=== PATIENT | male | born 1985 | race Caucasian/White ===

== ENCOUNTER 2019-05-24 04:13 | Observation (INO) ==
--- NOTE | 2019-05-24 04:29 | Emergency Department Note ---
ED Disposition Clinical Impression: Angina at rest, Tobacco use, Obesity (BMI 30.0-34.9) Chest pain Qualifiers: Chest pain type: precordial pain Qualified Code(s): R07.2 - Precordial pain Disposition: Admitted as Observation Condition on Discharge: Good Referrals: Provider,Referral, [Primary Care Provider] - - Critical Care Critical Care Time: No Attestation: On , the high probability of a clinically significant, sudden or life threatening deterioration of the following system(s) required my full and direct attention, intervention and personal management. The time I documented below is in addition to time spent performing reported procedures but includes the following listed in this critical care notation. Medical Decision Making - Medical Records Medical records reviewed: Yes: I reviewed the patient's medical records. - Wil[place] Inquiry Pt receiving controlled substance: No Vital Signs: 05/24/19 04:13 05/24/19 04:14 05/24/19 04:43 Temperature 99.3 F 99.3 F Temperature Source Oral Oral Pulse Rate [Right Brachial] 104 H 104 H 90 Respiratory Rate 14 14 16 Blood Pressure [Right Arm] 143/97 H 143/97 H 146/86 H Blood Pressure Mean [Right Arm] 112 112 106 Blood Pressure Source [Right Arm] Automatic Cuff Automatic Cuff Automatic Cuff Blood Pressure Position [Right Arm] Sitting Sitting Sitting 02 Sat by Pulse Oximetry 98 98 98 Oxygen Delivery Method Room Air Room Air Room Air - Lab Data Lab results reviewed: Yes: I reviewed the patient's lab results. Lab Results 05/24/19 04:24: WBC 10.7, RBC 4.81, Hgb 15.1, Hct 44.2, MCV 92.0, MCH 31.3 H, MCHC 34.0, RDW 13.3, Plt Count 268, MPV 8.1, Neut % (Auto) 64.3, Lymph % (Auto) 24.0, [place] % (Auto) 7.0, Eos % (Auto) 4.3, Baso % (Auto) 0.4, Neut # (Auto) 6.9, Lymph # (Auto) 2.6, [place] # (Auto) 0.8, Eos # (Auto) 0.5 H, Baso # (Auto) 0.0 05/24/19 04:24: Sodium 139, Potassium 3.6, Chloride 102, Carbon Dioxide 26, Anion Gap 14.6, BUN 10, Creatinine 0.93, Estimated Creat Clear 154, Estimated GFR 94, Est GFR ( Amer) 114, Glucose 88, Calcium 9.3, Troponin I < 0.02 Result diagrams: 05/24/19 04:24 05/24/19 04:24 Orders (Tests/Meds): ED MEDICATIONS Generic Name Dose Route Start Last Admin Trade Name Freq PRN Reason Stop Dose Admin Sodium Chloride 1,000 mls @ 999 mls/hr 05/24/19 04:15 05/24/19 04:22 Sod Chlor 0.9% 1000ml Bag IV 05/24/19 05:15 999 mls/hr .Q1H1M ARONLDO Administration Discontinued Medications Generic Name Dose Route Start Last Admin Trade Name Freq PRN Reason Stop Dose Admin Aspirin 324 mg 05/24/19 04:15 05/24/19 04:22 Aspirin 81mg Chewable Tablet PO 05/24/19 04:16 324 mg ONCE ONE Administration Nitroglycerin 1 gm 05/24/19 04:20 05/24/19 04:22 Nitroglycerin 1 Inch Oint Udp TD 05/24/19 04:21 1 gm ONCE ONE Administration ORDERS Category Date Time Status XR chest 2V Stat Exams 05/24/19 04:15 Taken - ECG Data Tracing #1 Normal Sinus Rhythm: Yes Ischemic changes: non-specific ST-T wave changes Chest Pain HPI - General Chief Complaint: Shortness of Breath/Dyspnea Stated Complaint: chest pain Time Seen by Provider: 05/24/19 04:20 Mode of Arrival: Ambulatory Source of Information: Patient, Medical Record Limitations: No Limitations Description of Symptoms (Recalled from ER Triage Doc. by RN): Pt c/o SOA and intermittent sharp chest pains that started yesterday - History of Present Illness HPI narrative: pt with chest tightness which started earlier tonight - has hx of card stents - reports pain is similiar to prev episodes - MD complaint: chest pain indicative of cardiac Onset (ago): hour(s) Duration: intermittent Activity at onset: during rest Pain location: substernal Severity: similar to previous episodes Quality: tightness Associated symptoms: nausea Risk Factors for CAD: Hypercholesterolemia, Family Hx of CAD, Smoking Treatments prior to or on arrival for Cardiac Chest Pain: none - ARTI Score for Non-Stemi Age of Patient: 30-39 years old Heart Rate: 90-109 bpm Systolic Blood Pressure: 140-159 mmHg Serum Creatinine: 0.80-1.19 mg/dl CHF [place] Class: I-No CHF Other Risk Factors: None Non-Stemi Risk Score: 54 - Related Data Prior Cardiac Testing/Procedures: Stenting Home Medications Medication Instructions Recorded Confirmed Atorvastatin Calcium [Atorvastatin 10 mg PO DAILY 07/19/18 05/24/19 10mg Tab] Gabapentin [Gabapentin 300mg Cap] 300 mg PO TID 07/19/18 05/24/19 Metoprolol Succinate [Kapspargo 50 mg PO DAILY 07/19/18 05/24/19 Sprinkle] Allergies Allergy/AdvReac Type Severity Reaction Status Date / Time Penicillins [PENICILLINS] Allergy Unknown Verified 07/20/18 13:03 [facility] History - Hepatitis A Screen Drug use history?: No High risk sexual behaviors?: No History of sexually transmitted infection?: No Currently employed?: No Childcare worker?: No Do you have indoor plumbing?: Yes Do you have electricity?: Yes Attestation statement:: This patient has been screened for Hepatitis A risk factors. I have reviewed the patient's past medical history: Yes Medical History: Reports:: Hyperlipidemia, Myocardial Infarction Denies:: Diabetes Mellitus Type 1, Diabetes Mellitus Type 2 Other Surgeries: Yes: Cardiac Catheterization (2017) - Social History Smoking Status: Current every day smoker # Packs/Day (cigarettes): 1 Alcohol Intake: never Family Hx:: Heart Attack Comment: father -CHF ROS Obtained: Yes All systems reviewed & no additional complaints - Constitutional Constitutional: Denies fever(s) - Eyes Eyes: Denies change in vision - ENT Ears, Nose, Mouth, and Throat: Denies sore throat - Cardiovascular Cardiovascular: Reports chest pain, Denies dyspnea - Respiratory Respiratory: No cough - Gastrointestinal Gastrointestingal: Denies: black, tarry stools - Genitourinary Male Genitourinary: Denies flank pain - Musculoskeletal Musculoskeletal: Denies joint pain - Integumentary/Breasts Skin/Breast: Denies rash - Neurologic Neurologic: Denies seizure-like activity Physical Exam - General General appearance: alert - Head Head exam: normocephalic - Eye Eye exam: Present: PERRL, EOMI - ENT ENT exam: Present: mucous membranes moist - Neck Neck exam: Present: trachea midline - Respiratory Respiratory exam: Absent: respiratory distress - Cardiovascular Cardiovascular exam: Present: regular rate, systolic murmur - Abdominal Exam Abdominal exam: Present: soft - Extremities Exam Extremities exam: Absent: calf tenderness - Neurological Exam Neurological exam: Present: alert, oriented X3, CN II-XII intact - Psychiatric Psychiatric exam: Present: normal affect - Skin Skin exam: Absent: rash
[2019-05-24 04:58] LABS: Basophils % 0.4 % (0.1-2.0); Eosinophils # 0.5 K/mm3 (0.0-0.4); Eosinophils % 4.3 % (0.1-12.0); Hematocrit 44.2 % (42.0-52.0); Hemoglobin 15.1 g/dL (14.1-18.0); Lymphocytes # 2.6 K/mm3 (0.7-4.5); Mean Platelet Volume 8.1 fl (7.4-10.4); Monocytes # 0.8 K/mm3 (0.1-1.0); Neutrophils # 6.9 K/mm3 (1.8-7.8); Neutrophils % 64.3 % (37.0-80.0); Platelet Count 268 K/mm3 (142-424); Red Blood Count 4.81 M/mm3 (4.60-6.20); Red Cell Distribution Width 13.3 % (11.5-17.5); White Blood Count 10.7 K/mm3 (4.8-10.8)
[2019-05-24 05:01] LABS: Anion Gap 14.6 mEq/L (5-15); Blood Urea Nitrogen 10 mg/dL (7-18); Calcium 9.3 mg/dL (8.5-10.1); Carbon Dioxide 26 mmol/L (21.0-32.0); Chloride 102 mmol/L (98-107); Glucose 88 mg/dL (74-106); Sodium 139 mmol/L (136-145)
--- NOTE | 2019-05-24 07:44 | Pharmacy Consult Notes ---
[facility] Pharmacy VTE Monitoring - Patient Demographics Admission date: 05/24/19 Report Date: 05/24/19 Time: 07:43 Allergies/Adverse Reactions: Patient Allergies Penicillins [PENICILLINS] Allergy (Unknown, Verified 07/20/18 13:03) Height: 1.65 m Weight: 106.254 kg Patient Problems: Current Active Problems Chest pain (Acute) Angina at rest (Acute) Tobacco use (Acute) Obesity (BMI 30.0-34.9) (Acute) - VTE Risk Labs: VTE Related Lab Results Hgb 15.1 g/dL (14.1-18.0) 05/24/19 04:24 Hct 44.2 % (42.0-52.0) 05/24/19 04:24 Plt Count 268 K/mm3 (142-424) 05/24/19 04:24 BUN 10 mg/dL (7-18) 05/24/19 04:24 Creatinine 0.93 mg/dL (0.70-1.30) 05/24/19 04:24 Estimated Creat Clear 154 mL/min (50-200) 05/24/19 04:24 Was VTE Risk Assessment Performed: Yes VTE Risk Level: Very Low Risk - Prophylaxis VTE Prophylaxis Ordered?: Yes Types of VTE Prophylaxis: TEDS Knee High Location of Applied Device: Bilateral Lower Extremeties - VTE Diagnosis Confirmed Treatment or plan recommended: Continue Current Treatment
--- NOTE | 2019-05-24 07:54 | History & Physical Report ---
*Admission Date: 05/24/19 *Chief complaint: Chest tightness with shortness of breath *History of present illness: 33-year-old male with history of coronary artery disease, [place] 1 year ago, presented to the emergency department with shortness of breath and chest tightness with exertion. Patient's original episode occurred around 9 PM. He finished his work shift which ended at 3:00. He came to the emergency department afterward. Patient describes being at work and developing shortness of breath that was soon followed by chest tightness that was relieved with rest. Anytime the patient would exert himself symptoms would recur. He has known RCA disease that needs to be managed medically. Patient claims he is compliant with medications. Patient has been battling an upper respiratory infection. He continues to smoke [facility] History I have reviewed the patient's past medical history: Yes Medical History: Reports:: Hyperlipidemia, Myocardial Infarction Denies:: Diabetes Mellitus Type 1, Diabetes Mellitus Type 2 *Have you ever received a pneumonia vaccine?: No *Have you received a flu vaccine this season?: Yes Other Surgeries: Yes: Cardiac Catheterization (2016) - *Social History Educational Level: Attended College Smoking Status: Current every day smoker # Packs/Day (cigarettes): 1 Alcohol Intake: never *Occupational Status:: employed *Travel in the last 8 weeks: None - Psychiatric History Expresses thoughts of harming self/others: None Suicide Plan Description: No Plan Family Hx:: Cancer, Heart Attack Review of Systems - Review of Systems Review of systems:: pertinent systems reviewed and negative unless documented below - Constitutional Denies anorexia, Denies body ache(s), Denies chills - *Cardiovascular Reports chest pain, Reports chest pain with activity, Reports shortness of breath with activity - *Respiratory Denies change in phlegm color, Denies chest congestion - *Gastrointestinal Denies abdominal pain, Denies belching - *Neurologic Denies seizure-like activity Meds Home Medications Medication Instructions Recorded Confirmed Type Atorvastatin Calcium [Atorvastatin 10 mg PO DAILY 07/19/18 05/24/19 History 10mg Tab] Eszopiclone [Lunesta] 1 mg PO HS 05/24/19 05/24/19 History Gabapentin 800 mg PO TID 05/24/19 05/24/19 History Metoprolol Tartrate [Lopressor 25 mg PO BID 05/24/19 05/24/19 History 25mg tablet] Allergies Allergy/AdvReac Type Severity Reaction Status Date / Time Penicillins [PENICILLINS] Allergy Unknown Verified 07/20/18 13:03 Exam Vital signs and Labs for Last 24 Hours: Temp Pulse Resp BP Pulse Ox 98.4 F 80 18 118/54 L 95 05/24/19 07:47 05/24/19 07:47 05/24/19 07:47 05/24/19 07:47 05/24/19 07:47 Laboratory Results - last 24 hr 05/24/19 04:24: WBC 10.7, RBC 4.81, Hgb 15.1, Hct 44.2, MCV 92.0, MCH 31.3 H, MCHC 34.0, RDW 13.3, Plt Count 268, MPV 8.1, Neut % (Auto) 64.3, Lymph % (Auto) 24.0, [place] % (Auto) 7.0, Eos % (Auto) 4.3, Baso % (Auto) 0.4, Neut # (Auto) 6.9, Lymph # (Auto) 2.6, [place] # (Auto) 0.8, Eos # (Auto) 0.5 H, Baso # (Auto) 0.0 05/24/19 04:24: Sodium 139, Potassium 3.6, Chloride 102, Carbon Dioxide 26, Anion Gap 14.6, BUN 10, Creatinine 0.93, Estimated Creat Clear 154, Estimated GFR 94, Est GFR ( Amer) 114, Glucose 88, Calcium 9.3, Troponin I < 0.02 I & O for Last 24 hours: Intake & Output 05/21/19 05/22/19 05/23/19 05/24/19 11:59 11:59 11:59 11:59 Intake Total 0 / 0 Balance 0 / 0 Weight 234 lb 4 oz - Constitutional no acute distress - *Routine HEENT Exam Head: Present: normocephalic ENT: Present: mucous membranes moist - *Routine Neck Exam Present: supple, full ROM. Absent: JVD - *Routine Respiratory Exam Present: CTA bilaterally - *Routine Cardiovascular Exam Present: RRR, Normal S1, Normal S2. Absent: murmur - *Routine Abdominal Exam Present: soft, normoactive bowel sounds - *Routine Extremities Exam Absent: cyanosis, clubbing, edema - *Routine Neurological Exam Present: oriented X3, CN II-XII intact Assessment and Plan (1) Coronary artery disease Current visit: Yes Status: Acute Category: Medical Code(s): I25.10 - Atherosclerotic heart disease of [place] coronary artery without angina pectoris (2) Angina at rest Current visit: Yes Status: Acute Category: Medical Code(s): I20.8 - Other forms of angina pectoris (3) Chest pain Current visit: Yes Status: Acute Qualifiers: Chest pain type: precordial pain Qualified Code(s): R07.2 - Precordial pain Category: Medical Code(s): R07.9 - Chest pain, unspecified (4) Obesity (BMI 30.0-34.9) Current visit: Yes Status: Acute Category: Medical Code(s): E66.9 - Obesity, unspecified (5) Tobacco use Current visit: Yes Status: Acute Category: Medical Code(s): Z72.0 - Tobacco use - Assessment and plan all Dx Assessment and Plan for all problems:: 1. Stress test today. Cardiology consultation
--- NOTE | 2019-05-24 07:58 | Consult Report ---
History of Present Illness Consult date: 05/24/19 Requesting physician: Prudencio Parada Consult reason: chest pain Chief complaint: chest pain Additional Medical History:: 1. Tobacco use, started age 14, 1 ppd 2. History of drug use, cocaine (remote) and marijuana 3. Family history of coronary artery disease, uncle with first myocardial infarction at age 40, father of with history of congestive heart failure in his 40's 4. Hypertension 5. NSTEMI, 05/2017 [facility] with stenting, 05/2017: ANGIOGRAPHIC RESULTS: 1. The left main artery normal 2. The left anterior descending artery proximally has 20% stenoses with mid vessel 30% stenoses. 3. The ramus intermedius is a medium to large vessel and has proximal and mid vessel 20% stenoses 4. The circumflex artery is a dominant vessel giving rise to a first obtuse marginal artery which has an ostial 80 and a proximal 99% stenosis. The distal vessels in 3 obtuse marginal arteries have mild nonflow limiting disease 5. The right coronary artery is a small nondominant vessel and has a proximal 80% stenosis 6. The STANLEY ventriculogram reveals normal 65% 7. The left ventricular end-diastolic pressure elevated at 20 mmHg IMPRESSION: 1. Severe single vessel coronary artery disease as described above 2. Successful stenting of the ostial first obtuse marginal artery critical disease reduced to 0% with 2 drug-eluting stents as described above 3. Normal ejection fraction 4. Mild to moderately elevated LVEDP 5. Severe disease in a small nondominant proximal right coronary artery PLAN: 1. Brilinta and aspirin for one year 2. LDL less than 55 3. Absolute avoidance of tobacco products 4. Risk factor modification 5. Agustin inhibitors plus carvedilol 6. Cardiac rehabilitation 7. I would like to treat the small nondominant right coronary artery medically. This is a small vessel and very unlikely to produce angina in the future given that only supplies the right ventricle with no communication with the left ventricle History of present illness: 33-year-old male with history of coronary artery disease, [place] 2 years ago, presented to the emergency department with shortness of breath and chest tightness with exertion. Patient's original episode occurred around 9 PM. He finished his work shift which ended at 3:00. He came to the emergency department afterward. Patient describes being at work and developing shortness of breath that was soon followed by chest tightness that was relieved with rest. Anytime the patient would exert himself symptoms would recur. He has known RCA disease that needs to be managed medically. Patient claims he is compliant with medications. Patient has been battling an upper respiratory infection. He continues to smoke. The above per Dr. Parada Pt was last seen in 06/2018 in our office with some history of recurrent chest pain for which a GXT myoview was ordered but never completed. EKG this admission is sinus without acute changes and initial troponin is normal. Pt relates headache from the NTG paste. Denies any drug use but continues to smoke, but is now on welbutrin to try and quit smoking. [facility] History Medical History: Reports:: Hyperlipidemia, Myocardial Infarction Denies:: Diabetes Mellitus Type 1, Diabetes Mellitus Type 2 *Have you ever received a pneumonia vaccine?: No *Have you received a flu vaccine this season?: Yes Other Surgeries: Yes: Cardiac Catheterization (2016) - *Social History Educational Level: Attended College Smoking Status: Current every day smoker # Packs/Day (cigarettes): 1 Alcohol Intake: never *Occupational Status:: employed *Travel in the last 8 weeks: None - Psychiatric History Expresses thoughts of harming self/others: None Suicide Plan Description: No Plan Family Hx:: Cancer, Heart Attack Meds Home Medications Medication Instructions Recorded Confirmed Type Atorvastatin Calcium [Atorvastatin 10 mg PO DAILY 07/19/18 05/24/19 History 10mg Tab] Eszopiclone [Lunesta] 1 mg PO HS 05/24/19 05/24/19 History Gabapentin 800 mg PO TID 05/24/19 05/24/19 History Metoprolol Tartrate [Lopressor 25 mg PO BID 05/24/19 05/24/19 History 25mg tablet] Allergies Allergy/AdvReac Type Severity Reaction Status Date / Time Penicillins [PENICILLINS] Allergy Unknown Verified 07/20/18 13:03 Review of Systems - *Cardiovascular Reports chest pain, Reports shortness of breath with activity - *Respiratory Reports cough, Reports shortness of breath with activity - *Gastrointestinal Denies abdominal pain, Denies nausea, Denies vomiting - *Genitourinary Denies blood in urine - *Musculoskeletal Denies joint pain, Denies back pain - *Neurologic Denies seizure-like activity, Denies fainting, Denies tingling Exam Vital signs and Labs for Last 24 Hours: Temp Pulse Resp BP Pulse Ox 98.4 F 80 18 118/54 L 95 05/24/19 07:47 05/24/19 07:47 05/24/19 07:47 05/24/19 07:47 05/24/19 07:47 Laboratory Results - last 24 hr 05/24/19 04:24: WBC 10.7, RBC 4.81, Hgb 15.1, Hct 44.2, MCV 92.0, MCH 31.3 H, MCHC 34.0, RDW 13.3, Plt Count 268, MPV 8.1, Neut % (Auto) 64.3, Lymph % (Auto) 24.0, [place] % (Auto) 7.0, Eos % (Auto) 4.3, Baso % (Auto) 0.4, Neut # (Auto) 6.9, Lymph # (Auto) 2.6, [place] # (Auto) 0.8, Eos # (Auto) 0.5 H, Baso # (Auto) 0.0 05/24/19 04:24: Sodium 139, Potassium 3.6, Chloride 102, Carbon Dioxide 26, Anion Gap 14.6, BUN 10, Creatinine 0.93, Estimated Creat Clear 154, Estimated GFR 94, Est GFR ( Amer) 114, Glucose 88, Calcium 9.3, Troponin I < 0.02 I & O for Last 24 hours: Intake & Output 05/21/19 05/22/19 05/23/19 05/24/19 11:59 11:59 11:59 11:59 Intake Total 0 / 0 Balance 0 / 0 Weight 234 lb 4 oz - *Routine HEENT Exam Head: Present: normocephalic Eye: Present: EOMI, PERRL ENT: Present: mucous membranes moist - *Routine Neck Exam Present: supple. Absent: JVD, carotid bruit - *Routine Respiratory Exam Present: CTA bilaterally. Absent: accessory muscle use, rales, rhonchi, wheezes Comments: expiratory wheezing noted with cough - *Routine Cardiovascular Exam Present: RRR. Absent: murmur, gallop, rubs - *Routine Abdominal Exam Present: soft. Absent: tenderness, distended, guarding - *Routine Extremities Exam Absent: edema, calf tenderness - *Routine Neurological Exam Present: alert, oriented X3, moving all extremities Assessment and Plan (1) Coronary artery disease Current visit: Yes Status: Acute Category: Medical Code(s): I25.10 - Atherosclerotic heart disease of [place] coronary artery without angina pectoris (2) Angina at rest Current visit: Yes Status: Acute Category: Medical Code(s): I20.8 - Other forms of angina pectoris (3) Chest pain Current visit: Yes Status: Acute Qualifiers: Chest pain type: precordial pain Qualified Code(s): R07.2 - Precordial pain Category: Medical Code(s): R07.9 - Chest pain, unspecified (4) Obesity (BMI 30.0-34.9) Current visit: Yes Status: Acute Category: Medical Code(s): E66.9 - Obesity, unspecified (5) Tobacco use Current visit: Yes Status: Acute Category: Medical Code(s): Z72.0 - Tobacco use - Assessment and plan all Dx Assessment and Plan for all problems:: 1. Recurrent exertional angina with known high-grade disease and a small, nondominant RCA best treated with medical therapy. Last cardiac cath was May 2017. Patient was seen in the office June 2018 for chest pain with recommendation for GXT Myoview to evaluate for recurrent coronary artery disease of the circumflex system or new disease of the LAD. EKG during this admission shows no acute changes, initial troponin is normal. We will proceed with exercise Myoview this a.m. with further recommendations to follow. If inferior wall is the only area of ischemia, then we will continue medical therapy. If an additional area is abnormal then proceed with cardiac catheterization. 2. Further recommendations to follow pending above results. 3. Nitroglycerin paste removed. 4. Continue metoprolol 25 mg twice daily, atorvastatin and aspirin.
--- NOTE | 2019-05-24 12:43 | Discharge Summary ---
General - General Admission date:: 05/24/19 Discharge date: 05/24/19 HPI HPI: 33-year-old male with history of coronary artery disease, [place] 1 year ago, presented to the emergency department with shortness of breath and chest tightness with exertion. Patient's original episode occurred around 9 PM. He finished his work shift which ended at 3:00. He came to the emergency department afterward. Patient describes being at work and developing shortness of breath that was soon followed by chest tightness that was relieved with rest. Anytime the patient would exert himself symptoms would recur. He has known RCA disease that needs to be managed medically. Patient claims he is compliant with medications. Patient has been battling an upper respiratory infection. He continues to smoke Hospital Course Hospital Course: Patient was admitted and ruled out for IL. Cardiology was consulted and arranged myoview stress test. Stress test showed evidence of old IL only. Patient was discharged to home. Patient will follow up with me in 48 hours and Cardiology next week Objective Vital signs: Temp Pulse Resp BP Pulse Ox 98.4 F 77 18 128/61 95 05/24/19 11:16 05/24/19 11:16 05/24/19 11:16 05/24/19 11:16 05/24/19 11:16 Results Labs on day of discharge: Labs from last 24 hours 05/24/19 05/24/19 04:24 04:24 WBC 10.7 RBC 4.81 Hgb 15.1 Hct 44.2 MCV 92.0 MCH 31.3 H MCHC 34.0 RDW 13.3 Plt Count 268 MPV 8.1 Neut % (Auto) 64.3 Lymph % (Auto) 24.0 [place] % (Auto) 7.0 Eos % (Auto) 4.3 Baso % (Auto) 0.4 Neut # (Auto) 6.9 Lymph # (Auto) 2.6 [place] # (Auto) 0.8 Eos # (Auto) 0.5 H Baso # (Auto) 0.0 Sodium 139 Potassium 3.6 Chloride 102 Carbon Dioxide 26 Anion Gap 14.6 BUN 10 Creatinine 0.93 Estimated Creat Clear 154 Estimated GFR 94 Est GFR ( Amer) 114 Glucose 88 Calcium 9.3 Troponin I < 0.02 DS: Diagnosis - Discharge Diagnosis (1) Coronary artery disease Status: Acute (2) Angina at rest Status: Acute (3) Chest pain Status: Acute (4) Obesity (BMI 30.0-34.9) Status: Acute (5) Tobacco use Status: Acute Discharge Plan - Patient Discharge Instructions ACTIVITY: Continue current activity DIET: continue same diet Additional Instructions: No work 05/24 Patient Instructions: DI for Angina, DI for Chest Pain - Follow up Plan Follow up with: Prudencio Parada MD [Primary Care Provider] - 2 days Primitivo Avina PA [Physician Meter And Service Line Inspector] - 1 week Disposition: Home, Self-Senior Living Medications: Home Medications Medication Instructions Recorded Confirmed Type Aspirin [Aspir-Low] 81 mg PO DAILY 05/24/19 05/24/19 History Atorvastatin Calcium [Atorvastatin 80 mg PO DAILY 05/24/19 05/24/19 History 80mg Tab] Eszopiclone [Lunesta] 1 mg PO HS 05/24/19 05/24/19 History Gabapentin 800 mg PO TID 05/24/19 05/24/19 History Metoprolol Tartrate [Lopressor 25 mg PO BID 05/24/19 05/24/19 History 25mg tablet] buPROPion HCl [Bupropion HCl Sr] 150 mg PO BID 05/24/19 05/24/19 History Prescriptions/Medication Reconciliation: Continued Gabapentin 800 mg PO TID buPROPion HCl [Bupropion HCl Sr] 150 mg PO BID Eszopiclone [Lunesta] 1 mg PO HS Metoprolol Tartrate [Lopressor 25mg tablet] 25 mg PO BID Atorvastatin Calcium [Atorvastatin 80mg Tab] 80 mg PO DAILY Aspirin [Aspir-Low] 81 mg PO DAILY - Problem Reconciliation Problems Reviewed?: Yes
--- NOTE | 2019-05-24 17:27 | Electrocardiograph Report ---
APPROVED REPORT Exam: Resting ECG HR:100 bpm ECG Measurements Heart Rate 100 AXES OK 150 P 54 QRSd 98 QRS 25 QT 334 T52 QTc 430 <Conclusion> Normal sinus rhythm Normal ECG Electronically signed by : Trey Mcmillan, 05/24/2019 17:27:25
--- NOTE | 2019-05-25 11:39 | Cardiology Report ---
APPROVED REPORT Exam: Exercise Treadmill Technologist: Bernadette Corcoran, Ht: 5 ft 5 in Wt: 234 lbs BSA: 2.11 m2 HR: 83 bpm BP: 132/82 mmHg Indications: Chest pain Medical History Medications: Metoprolol,,,,, Gabapentin,,,,, Atorvastatin,,,,, EsZOPICLONE,,,,, Stress Test Details Test: Kar HR Resting HR: 88 bpmMax Heart Rate (APMHR): 188 bpm Max HR Achieved: 147 bpmTarget HR (85% APMHR): 159 bpm % of APMHR: 78 Recovery HR: 99 bpm BP Resting BP: 132/82 mmHg Max BP: 176/80 mmHg Recovery BP: 130.0/83.0 mmHg ECG Clinical Exercise duration: 07:47 min Highest Stage Achieved: Exercise capacity: 10.1 METs Stress ECG Conclusion Resting ECG: Normal Sinus Rhythm, NS T wave abnormalities in lead III Patient exercised 7:46 on Kar Protocol, to maximum exertion. Test stopped due to shortness of air, leg fatigue. Mets: 10.1 Symptoms: No chest pain Arrhythmias/Ectopy: None ST-T Changes: Normal ST response to exercise. Conclusion: Normal GXT for heart rate achieved (78% of PM) Blunted heart rate on beta misael Myoview images reported separately. Test Summary REST.......Sitting REST.......Standing REST19:330.00.088.132/ 82.. Stage 101:0010.01.7110.... Stage 102:0010.01.7117.... Stage 103:0010.01.7122.130/ 78.. Stage 201:0012.02.5129.... Stage 202:0012.02.5133.... Stage 203:0012.02.5133.176/ 80.. Stage 3.......Myoview Injected Stage 301:4..4144.... Stage 301:4714.03.4146...Stop exercise at 07:47 [id number]:000.00.0135.154/ 76.. [id number]:000.00.0115.154/ 76.. [id number]:000.00.0104.137/ .. [id number]:000.00.0101.137/ .. [id number]:000.00.099.130/ .. [id number]:180.00.099.130/ 83.. Electronically signed by : Lamont Bagley, 05/25/2019 11:38:40
== END 2019-05-24 14:38 | disposition home or self-care (01) ==
LOC: 2ND 04:13 → ER 04:13 → 2ND 06:16
PROVIDERS: ADMIT Emergency Medicine; ATTEND Family Medicine
CPT/HCPCS: 71020; 71046; 78452; 80048; 84484; 85025; 93005; 93017; 93306; 96365; 99284; A9502; G0378

== ENCOUNTER → 2019-09-01 14:24 | Outpatient (CLI) | payer BC, SELFPAY ==
--- NOTE | 2019-09-01 14:31 | XR_ITS ---
PROCEDURE: XR FOOT WT BEARING RT 3V CLINICAL INDICATION: Pain COMPARISON: No exams were available for comparison FINDINGS: No fracture or dislocation. No lytic or blastic change. There is normal mineralization. The joint spaces are well-preserved. No significant degenerative/arthritic changes. No erosive changes evident. Other findings:There is a prominent posterior talar process. Borderline pes planus IMPRESSION: Prominent posterior talar process with borderline pes planus otherwise Dictated by: Ramone Tejada MD 09/01/2019 14:44 Electronically signed by Ramone Tejada MD in [place] 09/01/2019 14:44
== END ==
PROVIDERS: PCP Family Medicine; Visit Provider Family Medicine
DX: M79.671 Pain in right foot (principal)
CPT/HCPCS: 73630

== ENCOUNTER → 2020-04-18 08:56 | Outpatient (CLI) | payer BC, SELFPAY ==
[2020-04-18 10:12] LABS: Chloride 102 mmol/L (98-107)
[2020-04-18 10:13] LABS: Potassium 4.8 mmoL/L (3.5-5.1); Sodium 138 mmol/L (136-145)
[2020-04-18 10:15] LABS: Alanine Aminotransferase 80 U/L (12-78); Alkaline Phosphatase 72 U/L (38-126); Anion Gap 12.8 mEq/L (5-15); Aspartate Amino Transferase 37 U/L (17-59); Bilirubin,Total 0.5 mg/dl (0.2-1.3); Blood Urea Nitrogen 11 mg/dl (9-20); Carbon Dioxide 28 mmol/L (22.0-30.0); Cholesterol 211 mg/dl (140-200); Estimated Glomerular Filt Rate 130 ml/min (>60); GFR (African American) 157 ML/MIN (>60); Triglycerides 315 mg/dl (30-150); VLDL Cholesterol 63 mg/dL (0-40)
[2020-04-18 10:16] LABS: Albumin Level 4.1 g/dl (3.5-5.0); Albumin/Globulin Ratio 1.5 (1.1-1.8); Calcium 9.6 mg/dl (8.4-10.2); Chol/HDL Ratio 11.7 (1-3.5); Globulin 2.8 g/dL (1.3-3.2); Glucose 99 mg/dl (74-100); HDL Cholesterol 18 mg/dl (40-60); Total Protein,Serum 6.9 g/dl (6.3-8.2)
[2020-04-18 10:29] LABS: Direct LDL Cholesterol 146.01 mg/dL (100-129)
== END ==
PROVIDERS: Visit Provider Family Medicine
DX: I25.10 Atherosclerotic heart disease of native coronary artery without angina pectoris (principal); I10 Essential (primary) hypertension; E78.5 Hyperlipidemia, unspecified
CPT/HCPCS: 36415; 80053; 80061

== ENCOUNTER 2020-05-10 14:16 | Emergency (ER) | payer BC, SELFPAY ==
[2020-05-10 15:48] VITALS: BP 138/85; PULSE 91; RESP 19; TEMP 36.6; O2SAT 97; BMI 40.2
--- NOTE | 2020-05-10 15:54 | HMH.EDUTC ---
[facility] Disposition Clinical Impression: Otitis media Qualifiers: Otitis media type: unspecified Laterality: left Qualified Code(s): H66.92 - Otitis media, unspecified, left ear Disposition: Home, Self-Care Condition on Discharge: Good Instructions: Ear Infections (Alternative Therapy), Middle Ear Infection, Azithromycin, Preventing the Spread of Coronavirus Discharge Instructions Additional Instructions: *Monitor Temp, Over the counter Motrin or Tylenol as directed/as needed Tylenol every 4 hours and Motrin every 6 hours (as long as your family doctor has told you that you can take it) for fever or pain. and straight to ER if unable to lower temp less than 101.0 after medication given *Warm salt water gargles may help to soothe the throat *Throat Lozenges *Warm fluids like tea with honey may help to soothe the throat *Sleep elevated *Humidifier/Vaporizer You was tested for COVID 19 go home and self quarantine as you was instructed on the handout until you get your result back tomorrow Call [facility] tomorrow to see if your test result is back and the result Your throat swab was sent for culture. Those results are typically sent to your primary care. Be sure to follow up in 2-3 days with your family doctor/primary care physician if no improvement so they can review those result and treat if necessary. If you don?t have a primary care doctor, I recommend you get one but in the mean time, you will have to return to a walk in clinic Follow up IMMEDIATELY for new or worsening symptoms or no Noticeable improvement over the next 48-72 hours. 911 for difficulty breathing or swallowing ? Drink extra fluids with and between meals. If you have difficulty drinking, try very small amounts of water or suck on ice chips. ? Avoid fruit juices, as these do not replace minerals and can actually increase diarrhea. ? Children and adults can use sports drinks to replenish electrolytes. Younger children and infants should use products formulated for children, like oral rehydration solutions. ? Eat food in small amounts and let your stomach recover. ? Get lots of rest. You may feel tired or weak. ? No greasy or fried foods for the next 24-48 hours BRAT diet Bananas Rice Apples and [place] ? Make sure to drink plenty of liquids ? Return if needed ? Straight to ER if any life threatening symptoms ? You was given an outpatient order for diarrhea panel, please collect specimen and bring back to outpatient lab then call back to the [facility] or follow up with family doctor for results ? Follow up with family doctor in the next 48-72 hours if no improvement or any worsening of symptoms Prescriptions: Azithromycin [Z-Ronak 250mg Tab] 250 mg PO DIRECTED #6 tab Transmission Status: Sent to [facility] Referrals: Diego Simon MD [Primary Care Provider] - Forms: Work/School Release Time of Disposition: 15:59 Medical Decision Making - Wilbur Inquiry Pt receiving controlled substance: No Wilbur was queried for this patient: No Vital Signs: 05/10/20 15:48 Temperature 97.8 F Temperature Source Oral Pulse Rate [Right Brachial] 91 H Respiratory Rate 19 Blood Pressure [Right Arm] 138/85 Blood Pressure Mean [Right Arm] 102 Blood Pressure Source [Right Arm] Automatic Cuff Blood Pressure Position [Right Arm] Sitting 02 Sat by Pulse Oximetry 97 Oxygen Delivery Method Room Air - Lab Data Lab results reviewed: Yes: I reviewed the patient's lab results. Orders (Tests/Meds): ORDERS Category Date Time Status Coronavirus 19 Swab (OUTPT) Routine Lab 05/10/20 14:53 Received [facility] HPI - General Stated complaint: Sore throat Time Seen by Provider: 05/10/20 15:54 Mode of Arrival: Ambulatory Source of Information: Patient Limitations: No Limitations Description of Symptoms (Recalled from Triage Doc. by RN): PATIENT C/O SORE THROAT, FATIGUE, AND DIARRHEA X 4 DAYS HEENT Symptoms (Recalled from RN notes): Yes Resp Symptoms (Recalled from RN notes
[2020-05-10 16:00] VITALS: BP 138/85; PULSE 91; RESP 19; TEMP 36.6; O2SAT 99
[2020-05-10 17:39] LABS: UTC Strep Screen (Rapid) Negative (Negative)
== END 2020-05-10 16:05 | disposition home or self-care (01) ==
PROVIDERS: Emergency Provider Nurse Practitioner; PCP Family Medicine
DX: H66.92 Otitis media, unspecified, left ear (principal); Z20.828 Contact with and (suspected) exposure to other viral communicable diseases; I10 Essential (primary) hypertension; I25.10 Atherosclerotic heart disease of native coronary artery without angina pectoris; F17.210 Nicotine dependence, cigarettes, uncomplicated; Z79.899 Other long term (current) drug therapy
CPT/HCPCS: 87880; 99202; U0003

== ENCOUNTER 2020-08-21 02:22 | Emergency (ER) | payer BC, SELFPAY ==
[2020-08-21] VITALS (7 sets, daily range): BP systolic 114–144; BP diastolic 54–99; PULSE 98–139; RESP 15–18; TEMP 36.8–37.2; O2SAT 94–99; BMI 38.2
--- NOTE | 2020-08-21 02:35 | PC.NURSE ---
appropriate ppe worn by all staff due to nonspecific symptoms.
--- NOTE | 2020-08-21 02:37 | ECG_ITS ---
APPROVED REPORT Exam: Resting ECG HR:129 bpm ECG Measurements Heart Rate [address] 148 P 32 QRSd 92 QRS -29 QT 298 T 39 QTc 436 Conclusion Sinus tachycardia Left atrial abnormality Incomplete right bundle branch block Borderline ECG Electronically signed by : Prudencio Jain, 08/21/2020 19:49:35
--- NOTE | 2020-08-21 02:37 | PC.NURSE ---
Upon entering room to obtain vital signs for triage, it was noted that patient's heart rate was 140's, pt also complaining of back and abdominal pain, and shortness of breath. Patient moved to treatment room 7 for cardiac monitoring, EKG obtained.
--- NOTE | 2020-08-21 02:47 | XR_ITS ---
PROCEDURE: XR CHEST 2V CLINICAL HISTORY: chest pain COMPARISON: CR CXR1 CHEST-PORTABLE from 06/03/2017 CR CXR1VP XR chest portable from 07/19/2018 CR XR CHEST 2V from 05/24/2019 FINDINGS: The cardiomediastinal silhouette and pulmonary vascularity are within normal limits. There are low lung volumes. No lobar consolidation or. There is a granuloma in the right upper lobe. No acute bony abnormalities. IMPRESSION: No acute findings. Dictated by: Ramone Tejada MD 08/21/2020 05:38 Ramone Tejada MD in [place] 08/21/2020 05:38
--- NOTE | 2020-08-21 02:51 | HMH.EDSOB ---
ED Disposition Clinical Impression: COVID-19 virus detected Disposition: Home, Self-Care Condition on Discharge: Good Instructions: Preventing the Spread of Coronavirus Discharge Instructions Additional Instructions: call pcp today for follow up and quarantine Referrals: Diego Simon MD [Primary Care Provider] - - Critical Care Critical Care Time: No Attestation: On 08/21/20, the high probability of a clinically significant, sudden or life threatening deterioration of the following system(s) required my full and direct attention, intervention and personal management. The time I documented below is in addition to time spent performing reported procedures but includes the following listed in this critical care notation. Medical Decision Making - Medical Records Medical records reviewed: Yes: I reviewed the patient's medical records. - Wilbur Inquiry Pt receiving controlled substance: No Vital Signs: 08/21/20 02:24 08/21/20 02:54 08/21/20 03:24 Temperature 98.2 F Temperature Source Oral Pulse Rate [Right Brachial] 139 H 112 H 110 H Respiratory Rate 18 17 Blood Pressure [Right Arm] 144/99 H 120/83 117/77 Blood Pressure Mean [Right Arm] 114 95 90 Blood Pressure Source [Right Arm] Automatic Cuff Automatic Cuff Blood Pressure Position [Right Arm] Sitting Sitting 02 Sat by Pulse Oximetry 99 95 97 Oxygen Delivery Method Room Air Room Air 08/21/20 04:00 08/21/20 04:30 08/21/20 04:52 Temperature 98.9 F Temperature Source Oral Pulse Rate [Right Brachial] 110 H 108 H 107 H Respiratory Rate 15 18 15 Blood Pressure [Right Arm] 119/78 114/67 114/67 Blood Pressure Mean [Right Arm] 91 82 82 Blood Pressure Source [Right Arm] Automatic Cuff Blood Pressure Position [Right Arm] Supine 02 Sat by Pulse Oximetry 98 97 96 Oxygen Delivery Method Room Air Room Air - Lab Data Lab results reviewed: Yes: I reviewed the patient's lab results. Lab Results 08/21/20 02:43: WBC 6.5, RBC 5.38, Hgb 16.5, Hct 50.1, MCV 93.1, MCH 30.6, MCHC 32.9, RDW 13.2, Plt Count 192, MPV 8.5, Neut % (Auto) 68.9, Lymph % (Auto) 20.0, [place] % (Auto) 6.7, Eos % (Auto) 2.5, Baso % (Auto) 2.0, Neut # (Auto) 4.5, Lymph # (Auto) 1.3, [place] # (Auto) 0.4, Eos # (Auto) 0.2, Baso # (Auto) 0.1 08/21/20 02:43: Sodium 136, Potassium 3.8, Chloride 101, Carbon Dioxide 24, Anion Gap 14.8, BUN 9, Creatinine 0.80, Estimated Creat Clear 194, Estimated GFR 111, Est GFR ( Amer) 135, Glucose 127 H, Calcium 9.6, Troponin I < 0.01, Amylase 60, Lipase 55 08/21/20 02:43: SARS-CoV-2 IgG Ab (Rapid) Negative, SARS-CoV-2 IgM Ab (Rapid) Negative 08/21/20 02:43: C-Reactive Protein 6.5 H, Procalcitonin 0.097 08/21/20 02:43: ESR 16 H 08/21/20 03:04: Chlamy pneumoniae PCR Not detected, Adenovirus (PCR) Not detected, B. pertussis DNA (PCR) Not detected, Coronavirus OC43 (PCR) Not detected, Coronavirus HKU1 (PCR) Not detected, Coronavirus 229E (PCR) Not detected, SARS-CoV-2 (PCR) Detected A, Coronavirus NL63 (PCR) Not detected, Human Metapneumovir PCR Not detected, Influenza A (H1) PCR Not detected, Influ A (H1N1/09) PCR Not detected, Influenza A (H3) PCR Not detected, Influenza Type A (PCR) Not detected, Influenza Type B (PCR) Not detected, M. pneumoniae (PCR) Not detected, Parainfluenza 1 (PCR) Not detected, Parainfluenza 2 (PCR) Not detected, Parainfluenza 3 (PCR) Not detected, Parainfluenza 4 (PCR) Not detected, RSV (PCR) Not detected, Entero/Rhino (PCR) Not detected Result diagrams: 08/21/20 02:43 08/21/20 02:43 Orders (Tests/Meds): ED MEDICATIONS Generic Name Dose Route Start Last Admin Trade Name Freq PRN Reason Stop Dose Admin Sodium Chloride 1,000 mls @ 999 mls/hr 08/21/20 03:00 08/21/20 02:50 Sod Chlor 0.9% 1000ml Bag IV 08/21/20 04:00 999 mls/hr .Q1H1M ARNOLDO Administration Discontinued Medications Generic Name Dose Route Start Last Admin Trade Name Freq PRN Reason Stop Dose Admin Methylprednisolone Sodium Succinate 1
[2020-08-21 02:54] LABS: Basophils # 0.1 K/mm3 (0-0.2); Eosinophils # 0.2 K/mm3 (0.0-0.4); Eosinophils % 2.5 % (0.1-12.0); Hematocrit 50.1 % (42.0-52.0); Hemoglobin 16.5 g/dL (14.1-18.0); Lymphocytes # 1.3 K/mm3 (0.7-4.5); Mean Corpuscular HGB Conc 32.9 g/dL (31.8-35.4); Mean Corpuscular Hemoglobin 30.6 pg (27.0-31.2); Mean Corpuscular Volume 93.1 fl (80-94); Mean Platelet Volume 8.5 fl (7.4-10.4); Monocytes # 0.4 K/mm3 (0.1-1.0); Monocytes % 6.7 % (1.7-9.3); Neutrophils # 4.5 K/mm3 (1.8-7.8); Neutrophils % 68.9 % (37.0-80.0); Platelet Count 192 K/mm3 (142-424); Red Blood Count 5.38 M/mm3 (4.60-6.20); Red Cell Distribution Width 13.2 % (11.5-17.5); White Blood Count 6.5 K/mm3 (4.8-10.8)
[2020-08-21 03:01] LABS: Amylase 60 U/L (30-110); Anion Gap 14.8 mEq/L (5-15); Blood Urea Nitrogen 9 mg/dl (9-20); Calcium 9.6 mg/dl (8.4-10.2); Carbon Dioxide 24 mmol/L (22.0-30.0); Chloride 101 mmol/L (98-107); Creatinine Clearance Estimated 194 mL/min (50-200); Estimated Glomerular Filt Rate 111 ml/min (>60); GFR (African American) 135 ML/MIN (>60); Glucose 127 mg/dl (74-100); Lipase 55 U/L (23-300); Potassium 3.8 mmoL/L (3.5-5.1); Sodium 136 mmol/L (136-145)
--- NOTE | 2020-08-21 03:02 | PC.NURSE ---
patient to xray at this time
--- NOTE | 2020-08-21 03:09 | PC.NURSE ---
pt returned to room. Nasal swab obtained and sent to lab
[2020-08-21 03:14] LABS: Coronavirus 19 IgG Antibody Negative (Negative); Coronavirus 19 IgM Antibody Negative (Negative)
[2020-08-21 03:15] LABS: Adenovirus,PCR Not Detected (NotDetected); Bordetella Pertussis Not Detected (NotDetected); Chlamydophila Pneumoniae, PCR Not Detected (NotDetected); Coronavirus 229E Not Detected (NotDetected); Coronavirus NL63 Not Detected (NotDetected); Coronavirus OC43 Not Detected (NotDetected); Coronovirus HKU1,PCR Not Detected (NotDetected); Human Metapneumovirus Not Detected (NotDetected); Influenza A, PCR Not Detected (NotDetected); Influenza AH1, 2009 Not Detected (NotDetected); Influenza AH1, PCR Not Detected (NotDetected); Influenza AH3,PCR Not Detected (NotDetected); Influenza B, PCR Not Detected (NotDetected); Mycoplasma Pneumoniae, PCR Not Detected (NotDetected); Parainfluenza 1, PCR Not Detected (NotDetected); Parainfluenza 2, PCR Not Detected (NotDetected); Parainfluenza 3, PCR Not Detected (NotDetected); Parainfluenza 4, PCR Not Detected (NotDetected); Respiratory Syncytial Virus Not Detected (NotDetected); Rhinovirus/Enterovirus Not Detected (NotDetected)
--- NOTE | 2020-08-21 03:17 | CT_ITS ---
PROCEDURE: CT ANGIO CHEST CLINCIAL INDICATION: chest pain/sob Chest pain, shortness of breath, tachycardia COMPARISON: No exams were available for comparison TECHNIQUE: IV Contrast: 70ML Isovue 370 Axial images obtained with sagittal and coronal reformats. All CT scans at the facility use one or more dose reduction, viz: automated exposure control, ma/kV adjustment per patient size (including targeted exams where dose is matched to indication, i.e. head), or iterative reconstruction technique. FINDINGS: HEART AND MEDIASTINAL STRUCTURES: There are mildly enlarged mediastinal lymph nodes measuring up to 2 by 1 cm in the AP window. No evidence of aortic aneurysm or dissection. There is mild motion artifact which somewhat obscures fine detail. No evidence of pulmonary embolus. Coronary artery calcifications are present. Small nodes are also present in the [place] on both sides. LUNGS AND PLEURAL SPACES: There is calcified granuloma in the right upper lobe. There is mild bronchial thickening. There are low lung volumes with vascular crowding and mosaic attenuation of the lung parenchyma. BONY STRUCTURES: No acute bony abnormalities apparent. UPPER ABDOMEN: Fatty liver. ADDITIONAL FINDINGS: Mildly prominent right axillary lymph nodes are present. IMPRESSION: 1. No acute finding with no evidence of pulmonary embolus or aortic aneurysm or dissection. 2. Mild bronchial wall thickening with mosaic attenuation of the lungs suggesting small airway disease. This may also be accentuated by the low lung volumes. 3. Mild mediastinal adenopathy which could be reactive or neoplastic. Recommend 2-3 month follow-up to confirm short term stability. 4. Fatty liver Dictated by: Ramone Tejada MD 08/21/2020 09:48 Ramone Tejada MD in [place] 08/21/2020 09:48
[2020-08-21 03:20] LABS: Troponin I < 0.01 ng/ml (0.00-0.034)
--- NOTE | 2020-08-21 03:29 | PC.NURSE ---
Patient to radiology for a CTA at this time
[2020-08-21 03:35] LABS: C-Reactive Protein 6.5 mg/L (0-4)
--- NOTE | 2020-08-21 03:48 | PC.NURSE ---
patient back from CT at this time, no needs voiced
[2020-08-21 03:49] LABS: Procalcitonin 0.097 ng/mL (0.0-2.0)
[2020-08-21 03:52] LABS: Erythrocyte Sedimentation Rate 16 mm/hr (0-15)
[2020-08-21 04:35] LABS: Coronavirus 19, PCR Detected (NotDetected)
== END 2020-08-21 05:14 | disposition home or self-care (01) ==
PROVIDERS: Emergency Provider Emergency Medicine; PCP Family Medicine
DX: U07.1 COVID-19 (principal); I25.2 Old myocardial infarction; E78.5 Hyperlipidemia, unspecified; F17.210 Nicotine dependence, cigarettes, uncomplicated; Z79.899 Other long term (current) drug therapy
CPT/HCPCS: 71046; 71275; 80048; 82150; 83690; 84145; 84484; 85025; 85651; 86140; 86328; 87581; 87633; 87798; 93005; 96365; 96375; 99284; Q9967

== ENCOUNTER 2021-01-28 15:10 | Emergency (ER) | payer BC, SELFPAY ==
[2021-01-28 15:20] VITALS: BP 128/83; PULSE 108; RESP 16; TEMP 36.9; O2SAT 97; BMI 39.9
[2021-01-28 15:44] LABS: Microscopic, Urine URINE MICROSCOPIC (MICROSCOPIC)
--- NOTE | 2021-01-28 15:44 | CT_ITS ---
PROCEDURE: CT ABDOMEN PELVIS W CON CLINICAL INDICATION: lower back and abd pain COMPARISON: No exams were available for comparison TECHNIQUE: IV Contrast: 75ML Isovue 370 Oral Contrast None Axial images obtained with sagittal and coronal reformats. All CT scans at the facility use one or more dose reduction, viz: automated exposure control, ma/kV adjustment per patient size (including targeted exams where dose is matched to indication, i.e. head), or iterative reconstruction technique. FINDINGS: LOWER THORAX: Coronary artery calcifications ABDOMEN & PELVIS: Fatty liver. No focal liver lesions are evident. The spleen, adrenal glands, pancreas, and kidneys show no acute finding. There is a small hypodensity in the left kidney mid aspect at four mm too small to categorize and may be due to small cyst. The appendix is not clearly delineated. No secondary signs of appendicitis. No evidence of diverticulitis. No intestinal obstruction or free air. There is a small umbilical hernia containing fat. The rectum and distal sigmoid colon appears slightly thickened possibly due to nondistention. Small sclerotic foci are present in the left femoral neck and right femoral head suggesting bone islands. IMPRESSION: 1. Minimal thickening of the rectosigmoid region possibly due to nondistention. Colitis would be included in the differential diagnosis. 2. Otherwise negative Dictated by: Ramone Tejada MD 01/28/2021 16:40 Ramone Tejada MD in [place] 01/28/2021 16:40
[2021-01-28 15:47] LABS: Appearance,Urine CLEAR (Clear); Bilirubin,Urine Negative (Negative); Blood, Urine Negative (Negative); Color,Urine YELLOW (Yellow); Glucose,Urine (UA) 1+ (Negative); Ketones,Urine Negative (Negative); Leukocyte Esterase,Urine Negative (Negative); Nitrate,Urine Negative (Negative); Protein,Urine Negative (Negative); Urobilinogen,Urine 0.2 EU/dl (0.2)
[2021-01-28 15:52] LABS: Basophils % 0.3 % (0.1-2.0); Eosinophils # 0.2 K/mm3 (0.0-0.4); Eosinophils % 1.8 % (0.1-12.0); Hematocrit 46.2 % (42.0-52.0); Hemoglobin 15.5 g/dL (14.1-18.0); Lymphocytes # 2.1 K/mm3 (0.7-4.5); Lymphocytes % 15.9 % (10-50); Mean Corpuscular HGB Conc 33.7 g/dL (31.8-35.4); Mean Corpuscular Hemoglobin 31.1 pg (27.0-31.2); Mean Corpuscular Volume 92.5 fl (80-94); Mean Platelet Volume 8.7 fl (7.4-10.4); Monocytes # 0.4 K/mm3 (0.1-1.0); Monocytes % 3.1 % (1.7-9.3); Neutrophils # 10.3 K/mm3 (1.8-7.8); Neutrophils % 78.9 % (37.0-80.0); Platelet Count 245 K/mm3 (142-424); Red Cell Distribution Width 13.5 % (11.5-17.5); White Blood Count 13.1 K/mm3 (4.8-10.8)
[2021-01-28 15:58] LABS: Bacteria,Urine Trace /lpf; Mucus,Urine 1+ /lpf
[2021-01-28 16:00] LABS: Alanine Aminotransferase 69 U/L (12-78); Albumin Level 4.1 g/dl (3.5-5.0); Albumin/Globulin Ratio 1.4 (1.1-1.8); Alkaline Phosphatase 92 U/L (38-126); Anion Gap 8.7 mEq/L (5-15); Aspartate Amino Transferase 42 U/L (17-59); Bilirubin,Total 0.3 mg/dl (0.2-1.3); Blood Urea Nitrogen 9 mg/dl (9-20); Calcium 9.4 mg/dl (8.4-10.2); Carbon Dioxide 28 mmol/L (22.0-30.0); Chloride 106 mmol/L (98-107); Creatinine Clearance Estimated 200 mL/min (50-200); Estimated Glomerular Filt Rate 111 ml/min (>60); GFR (African American) 134 ML/MIN (>60); Globulin 2.9 g/dL (1.3-3.2); Glucose 186 mg/dl (74-100); Potassium 3.7 mmoL/L (3.5-5.1); Sodium 139 mmol/L (136-145)
[2021-01-28 17:30] VITALS: BP 127/77; PULSE 98; RESP 20; O2SAT 98
--- NOTE | 2021-01-28 19:46 | HMH.EDGENADL ---
ED Disposition Clinical Impression: Colitis Disposition: Home, Self-Care Condition on Discharge: Fair Instructions: DI for Colitis Additional Instructions: White blood cell count of 13.1 electrolytes are essentially within normal limits urine analysis is negative CT shows colitis plan is to discharge patient home with prescriptions for Cipro and Flagyl as well as Zofran for nausea Prescriptions: Ciprofloxacin HCl [Cipro 500mg Tab] 500 mg PO BID #20 tab Transmission Status: Pending to [facility] metroNIDAZOLE [Flagyl 500mg Tablet] 500 mg PO BID #14 tab Transmission Status: Pending to [facility] Ondansetron [Zofran 4mg ODT] 4 mg PO NEEDED PRN 10 Days #14 tab.rapdis PRN Reason: Nausea Transmission Status: Pending to [facility] Referrals: Diego Simon MD [Primary Care Provider] - Time of Disposition: 19:50 - Critical Care Critical Care Time: No Attestation: On 01/28/21, the high probability of a clinically significant, sudden or life threatening deterioration of the following system(s) required my full and direct attention, intervention and personal management. The time I documented below is in addition to time spent performing reported procedures but includes the following listed in this critical care notation. Medical Decision Making - Medical Records Medical records reviewed: Yes: I reviewed the patient's medical records. MR Comment: pt reports osmin lower back pain radiating around to his abd in epigastric area. Pt reports pain has been present x2 days. Pt denies n/v/d. White blood cell count of 13.1 electrolytes are essentially within normal limits urine analysis is negative CT shows colitis plan is to discharge patient home with prescriptions for Cipro and Flagyl as well as Zofran for nausea - Wilbur Inquiry Pt receiving controlled substance: No Vital Signs: 01/28/21 15:20 01/28/21 17:30 Temperature 98.5 F Temperature Source Oral Pulse Rate 98 H Pulse Rate [Right Radial] 108 H Respiratory Rate 16 20 Blood Pressure 127/77 Blood Pressure [Right Arm] 128/83 Blood Pressure Mean 83 Blood Pressure Mean [Right Arm] 98 Blood Pressure Source [Right Arm] Automatic Cuff Blood Pressure Position [Right Arm] Sitting 02 Sat by Pulse Oximetry 97 98 Oxygen Delivery Method Room Air - Lab Data Lab results reviewed: Yes: I reviewed the patient's lab results. Lab Results 01/28/21 15:30: Urine Color Yellow, Urine Appearance Clear, Urine pH 7.0, Ur Specific [place] 1.020, Urine Protein Negative, Urine Glucose (UA) 1+, Urine Ketones Negative, Urine Blood Negative, Urine Nitrate Negative, Urine Bilirubin Negative, Urine Urobilinogen 0.2, Ur Leukocyte Esterase Negative, Urine RBC None, Urine WBC 3-5, Ur Squamous Epith Cells 3-5, Urine Bacteria Trace, Urine Mucus 1+ 01/28/21 15:30: WBC 13.1 H, RBC 5.00, Hgb 15.5, Hct 46.2, MCV 92.5, MCH 31.1, MCHC 33.7, RDW 13.5, Plt Count 245, MPV 8.7, Neut % (Auto) 78.9, Lymph % (Auto) 15.9, [place] % (Auto) 3.1, Eos % (Auto) 1.8, Baso % (Auto) 0.3, Neut # (Auto) 10.3 H, Lymph # (Auto) 2.1, [place] # (Auto) 0.4, Eos # (Auto) 0.2, Baso # (Auto) 0.0 01/28/21 15:30: Sodium 139, Potassium 3.7, Chloride 106, Carbon Dioxide 28, Anion Gap 8.7, BUN 9, Creatinine 0.80, Estimated Creat Clear 200, Estimated GFR 111, Est GFR ( Amer) 134, Glucose 186 H, Calcium 9.4, Total Bilirubin 0.3, AST 42, ALT 69, Alkaline Phosphatase 92, Total Protein 7.0, Albumin 4.1, Globulin 2.9, Albumin/Globulin Ratio 1.4 Result diagrams: 01/28/21 15:30 01/28/21 15:30 Orders (Tests/Meds): ED MEDICATIONS Generic Name Dose Route Start Last Admin Trade Name Pradeep PRN Reason Stop Dose Admin Levofloxacin 500 mg 01/28/21 19:45 Levofloxacin 500mg Tab PO 01/28/21 19:46 ONCE ONE Protocol Metronidazole 500 mg 01/28/21 19:45 Metronidazole 500 Mg Tablet PO 01/28/21 19:46 ONCE ONE Protocol Discontinued Medications Generic Name
[2021-01-28 19:58] VITALS: BP 124/72; PULSE 92; RESP 18; TEMP 36.9; O2SAT 98
== END 2021-01-28 20:02 | disposition home or self-care (01) ==
PROVIDERS: Emergency Provider Emergency Medicine; PCP Family Medicine
DX: K52.9 Noninfective gastroenteritis and colitis, unspecified (principal); I10 Essential (primary) hypertension; E78.5 Hyperlipidemia, unspecified; I25.2 Old myocardial infarction; F17.210 Nicotine dependence, cigarettes, uncomplicated; Z79.899 Other long term (current) drug therapy; Z88.0 Allergy status to penicillin
CPT/HCPCS: 74177; 80053; 81001; 85025; 99283; Q9967

== ENCOUNTER → 2021-01-31 10:08 | Outpatient (CLI) | payer BC, SELFPAY ==
--- NOTE | 2021-01-31 10:13 | XR_ITS ---
PROCEDURE: XR ABDOMEN MIN 2V CLINICAL INDICATION: COLITIS COMPARISON: No exams were available for comparison FINDINGS: Scattered air-fluid levels are present within on nondilated large bowel suggesting colitis or diarrhea. No intestinal obstruction or free air apparent. No acute bony anomalies or abnormal calcifications. IMPRESSION: Scattered air-fluid levels within nondilated bowel suggesting ileus, colitis, or diarrhea disease Dictated by: Ramone Tejada MD 01/31/2021 15:12 Ramone Tejada MD in [place] 01/31/2021 15:12
== END ==
LOC: RT 10:10
PROVIDERS: PCP Family Medicine; Visit Provider Physician Assistant
DX: K52.9 Noninfective gastroenteritis and colitis, unspecified (principal)
CPT/HCPCS: 74019

== ENCOUNTER → 2021-03-08 10:01 | Outpatient (CLI) | payer BC, SELFPAY | PROVIDERS: Visit Provider Internal Medicine Gastroenterology | DX: Z01.812 Encounter for preprocedural laboratory examination (principal); Z20.822 Contact with and (suspected) exposure to COVID-19; Z12.11 Encounter for screening for malignant neoplasm of colon | CPT/HCPCS: U0003 ==

== ENCOUNTER 2021-03-11 09:19 | Day surgery (SDC) | payer BC, SELFPAY ==
[2021-03-05 11:56] VITALS: BMI 39.6
[2021-03-11 09:59] VITALS: BP 112/63; PULSE 88; RESP 18; TEMP 36.2; O2SAT 98
--- NOTE | 2021-03-11 11:04 | P.PN_ITS ---
[facility] Anesthesia Checklist - Patient Identification Patient Identification: Arm Band - Structural Data Admitted From: Home Planned Operative Procedure/s: colonoscopy Consent for Planned Operative Procedure(s) Verified: Yes Verified Documents: Surgical Consent, History and Physical - NPO Status Verified Time NPO: 00:00 - Additional verifications Anesthesia Reactions: No - Airway Assessment C-Spine Mobility Assessed: Yes (mp2) TMJ Mobility Assessed: Yes Dentition: Edentulous - Neurological Assessment Level of Consciousness: Awake, Alert - Anesthesia Plan Anesthesia Risk discussed: Yes Anesthesia Plan: Verified ASA Class: III Anesthesia Type: [facility] History I have reviewed the patient's past medical history: Yes Medical History: Reports:: Coronary Artery Disease, Gastroesophageal Reflux Disease(GERD), Hyperlipidemia, Myocardial Infarction Denies:: Cancer, Diabetes Mellitus Type 1, Diabetes Mellitus Type 2, Home Oxygen, MRSA, Seizures *Have you ever received a pneumonia vaccine?: No *Have you received a flu vaccine this season?: No Anesthesia experience/problems:: nac Other Surgeries: Yes: Cardiac Catheterization (2017), Other Amputation: No Fractures: No - *Social History Last grade of school completed: Some college Smoking Status: Current every day smoker Tobacco Type: cigarettes # Packs/Day (cigarettes): 1 Alcohol Intake: never Substance Use Type: denies use *Occupational Status:: employed Housing: house *Travel in the last 8 weeks: None Family Hx:: Cancer, Heart Attack
--- NOTE | 2021-03-11 11:25 | P.PCN_ITS ---
[facility] Procedure Note Procedure Note:: Colonoscopy Procedure Report: Colonoscopy with cold snare polypectomy and cold biopsies Endoscopist: Ezekiel Kothari II, MD Referring physician: Ishmael Simon MD Date of Procedure: March 11, 2021 Equipment: Olympus 190 variable stiffness pediatric colonoscope Sedation: MAC sedation Indication: Mr. Houston is a 35-year-old gentleman who is here for diagnostic colonoscopy. He has had lower abdominal pain, bloating and moderate gassiness. He did have a CAT scan of the abdomen and pelvis on January 28, 2021 and there was some thickening of the rectosigmoid colon very mildly. This was felt to be either nondistention or possible proctocolitis. The patient received antibiotics 3 times and this eventually improved some but he continues to have this lower abdominal pain. He did get some antibiotic associated diarrhea but mostly his bowel function is regular. He reports no rectal bleeding or weight loss. His father had colon cancer at the age of 62. This is his first colonoscopy. Procedure: Prior to the procedure, a history and physical exam was performed, and patient's medications and allergies were reviewed. The risks, benefits and alternatives of the sedation and procedure were discussed with the patient. All questions were answered and informed consent was obtained. The patient was brought to the procedure room. Patient identification and proposed procedure were verified by the physician and the nurse. The patient was placed in a left lateral decubitus position and the scope was passed under direct vision. Throughout the procedure, the patient's blood pressure, pulse, and oxygen saturations were monitored continuously. The colonoscopy was accomplished without difficulty. The patient tolerated the procedure well. Findings: On digital rectal examination there was normal rectal tone. There were no external hemorrhoids. The colonoscope was introduced through the anal canal to the rectum and advanced to the cecum. The ileocecal valve and appendiceal orifice were identified. The scope was advanced a short distance into the ileum which appeared grossly normal. The scope was then withdrawn into the colon. The cecum, ascending, transverse and ascending colon were grossly normal. There was some mild haustral edema of the mid/distal sigmoid and rectosigmoid and biopsies were obtained. There were a few very shallow diverticuli of the sigmoid colon. Within the rectum, there was a diminutive 2 to 3 mm polyp that was removed via cold snare polypectomy. There were no other mucosal abnormalities identified. Upon retroflexion within the rectum there were grade 1-2 internal hemorrhoids.The preparation was excellent throughout with [place] Preparation Score of 9. The cecal time was 11 minutes. Impression: 1. Diminutive rectal polyp?probable hyperplastic polyp 2. Very mild sigmoid diverticulosis with some minor diverticular associated colitis or edema 3. Grade 1-2 internal hemorrhoids Plan: I will follow-up the biopsies and polyp histology. I will discuss dietary measures and fiber bowel regimen on a long-term daily maintenance basis.
[2021-03-11 11:27] VITALS: BP 91/74; PULSE 91; RESP 12; TEMP 36.4; O2SAT 91
[2021-03-11 11:37] VITALS: BP 91/72; PULSE 84; RESP 16; O2SAT 96
[2021-03-11 11:47] VITALS: BP 147/69; PULSE 79; RESP 16; O2SAT 96
[2021-03-11 11:57] VITALS: BP 119/77; PULSE 81; RESP 16; TEMP 36.4; O2SAT 96
[2021-03-11 13:15] VITALS: O2SAT 97
== END 2021-03-11 11:58 | disposition home or self-care (01) ==
LOC: OUTP 09:21
PROVIDERS: PCP Family Medicine; Visit Provider Internal Medicine Gastroenterology
PROC: 0DJD8ZZ Inspection of Lower Intestinal Tract, Via Natural or Artificial Opening Endoscopic (ICD-10-PCS; CPT 45378; principal; 2021-03-11 10:30)
DX: K63.9 Disease of intestine, unspecified (principal); K62.1 Rectal polyp; K57.30 Diverticulosis of large intestine without perforation or abscess without bleeding; K64.0 First degree hemorrhoids; Z80.0 Family history of malignant neoplasm of digestive organs; I25.10 Atherosclerotic heart disease of native coronary artery without angina pectoris; K21.9 Gastro-esophageal reflux disease without esophagitis; E78.5 Hyperlipidemia, unspecified; I25.2 Old myocardial infarction; I10 Essential (primary) hypertension; Z80.9 Family history of malignant neoplasm, unspecified; Z82.3 Family history of stroke
CPT/HCPCS: 45385; 45380

== ENCOUNTER → 2021-05-01 11:51 | Outpatient (CLI) | payer BC, SELFPAY ==
--- NOTE | 2021-05-01 11:55 | XR_ITS ---
PROCEDURE: XR CHEST 2V CLINICAL HISTORY: PNEUMONIA COMPARISON: CR CXR1VP XR chest portable from 07/19/2018 CR XR CHEST 2V from 05/24/[address] ANGIO CHEST from 08/21/2020 CR XR CHEST 2V from 08/21/2020 FINDINGS: The cardiomediastinal silhouette and pulmonary vascularity are within normal limits. The lungs are clear without infiltrates, suspicious nodules, or pleural effusions. No acute bony abnormalities. IMPRESSION: No acute findings. Dictated by: Ramone Tejada MD 05/01/2021 12:48 Ramone Tejada MD in [facility] 05/01/2021 12:48
== END ==
LOC: RAD 11:53
PROVIDERS: PCP Family Medicine; Visit Provider Nurse Practitioner Family
DX: J18.9 Pneumonia, unspecified organism (principal)
CPT/HCPCS: 71046

== ENCOUNTER → 2021-11-09 08:18 | Outpatient (CLI) | payer BC, SELFPAY ==
[2021-11-09 09:37] LABS: Alanine Aminotransferase 70 U/L (12-78); Albumin Level 4.5 g/dl (3.5-5.0); Albumin/Globulin Ratio 1.8 (1.1-1.8); Alkaline Phosphatase 68 U/L (38-126); Anion Gap 12.6 mEq/L (5-15); Aspartate Amino Transferase 40 U/L (17-59); Bilirubin,Total 0.6 mg/dl (0.2-1.3); Blood Urea Nitrogen 11 mg/dl (9-20); Calcium 9.2 mg/dl (8.4-10.2); Carbon Dioxide 28 mmol/L (22.0-30.0); Chloride 104 mmol/L (98-107); Chol/HDL Ratio 11.1 (1-3.5); Cholesterol 199 mg/dl (140-200); Estimated Glomerular Filt Rate 111 ml/min (>60); GFR (African American) 134 ML/MIN (>60); Globulin 2.5 g/dL (1.3-3.2); Glucose 108 mg/dl (74-100); HDL Cholesterol 18 mg/dl (40-60); Potassium 4.6 mmoL/L (3.5-5.1); Sodium 140 mmol/L (136-145); Triglycerides 214 mg/dl (30-150); VLDL Cholesterol 43 mg/dL (0-40)
[2021-11-09 09:48] LABS: Direct LDL Cholesterol 152.79 mg/dL (100-129)
== END ==
PROVIDERS: PCP Family Medicine; Visit Provider Family Medicine
DX: I25.10 Atherosclerotic heart disease of native coronary artery without angina pectoris (principal); E78.5 Hyperlipidemia, unspecified
CPT/HCPCS: 36415; 80053; 80061

== ENCOUNTER → 2022-11-12 15:18 | Outpatient (CLI) | payer BC, SELFPAY | PROVIDERS: PCP Internal Medicine Adolescent Medicine; Visit Provider Internal Medicine Adolescent Medicine | DX: G47.33 Obstructive sleep apnea (adult) (pediatric) (principal); R06.83 Snoring; R51.9 Headache, unspecified; G47.00 Insomnia, unspecified; E66.9 Obesity, unspecified; Z68.38 Body mass index [BMI] 38.0-38.9, adult | CPT/HCPCS: G0399 ==

== ENCOUNTER 2024-01-22 07:59 | Emergency (ER) | payer BC, SELFPAY ==
[2024-01-22 08:20] VITALS: BP 152/91; PULSE 91; RESP 18; TEMP 36.7; O2SAT 96; BMI 42.5
--- NOTE | 2024-01-22 08:31 | XR_ITS ---
FINAL REPORT TECHNIQUE: Chest PA & Lateral CLINICAL HISTORY: pain with breathing FINDINGS: 2 views of the chest were performed. The heart size is normal. The mediastinum is within normal limits. There is no acute cardiopulmonary process. There are no pleural effusions. There is no pneumothorax. The bony thorax appears intact. IMPRESSION: No acute cardiopulmonary process. Reviewed, Interpreted and Dictated by Simone Naik MD Transcribed by Bertha Lopes Authenticated and [facility]
--- NOTE | 2024-01-22 08:31 | EXP.UTC ---
Discharge Plan Disposition Patient Disposition: Home, Self-Care Condition: Good Prescriptions Prescriptions: New methocarbamol 750 mg tablet 750 mg PO TID PRN (Reason: muscle spasm) Qty: 12 0RF No Action clopidogrel [Plavix] 75 mg tablet 75 mg PO DAILY metoprolol tartrate 25 MG tablet 25 mg PO BID atorvastatin 80 MG tablet 80 mg PO DAILY Patient Comments: TAKE 1 TABLET BY MOUTH ONCE DAILY aspirin 81 MG tablet,delayed release (DR/EC) 81 mg PO DAILY Patient Comments: TAKE 1 TABLET BY MOUTH EVERY DAY lisinopril 20 mg Tablet 20 mg PO DAILY omeprazole 40 mg Capsule,Delayed Release(Dr/Ec) 40 mg PO DAILY metformin 500 mg Tablet 500 mg PO DAILY ezetimibe [Zetia] 10 mg Tablet 10 mg PO DAILY Referrals Follow up/Referrals: Prudencio Jain MD [Primary Care Provider] - See instructions Activity Restrictions/Add. Instructions Additional Instructions/Restrictions: *Ibuprofen dede 6 hours with meal as needed for pain/inflammation if you can take it if not Take Tylenol *Not additional anti-inflammatory like motrin, aleve, advil with the above amount of ibuprofen. You can still take Tylenol every 4 hours as needed if you need something else for pain *Ice 20 minutes every 2 hours for the first 48 hours after the initial injury followed by moist heat every 20 minutes 3-4 times a day to affected area *Muscle relaxer every 8 hours as needed for muscle spasms but remember and over the counter Muscle rub like Biofreeze may help with pain, it WILL cause drowsiness You cannot take it and drive, operate machinery or care for small children. *Keep this area active, no movement leads to more stiffness, However take it easy and avoid heavy lifting pushing or pulling *Follow up with you family doctor if no improvement for further treatment Clinical Impressions Clinical Impression: Muscle spasm Stand Alone Forms Stand Alone Forms: Work/School Release Instructions Patient Instructions: DI for Muscle Spasm, Methocarbamol Discharge ED Provider: Radha Garcia [facility] General Stated complaint: abd and lower back pain Mode of Arrival: Ambulatory Source of Information: Patient Limitations: No Limitations Time Seen by Provider: 01/22/24 08:31 Description of Symptoms (Recalled from Triage Doc. by RN): Pt's symptoms are bilateral middle of back almost flank pain that wraps around the front. He stated that the pain in constant and rates it 5/10. He states that when he breaths it makes it worse. HEENT Symptoms (Recalled from RN notes): No Resp Symptoms (Recalled from RN notes): No Skin Symptoms (Recalled from RN notes): No MS Symptoms (Recalled from RN notes): Yes Functional Status (Recalled from RN notes): n/a History of Present Illness Provider Complaint: Patient states that he woke up a few days ago bit bilateral mid back pain that has continued to get worse States that at times when he takes a deep breath it feels like it tightens up on him States feels like it is moving into his sides and again pain is worse with deep breath Denies productive cough Denies loss of control of bowel or bladder Related Data Home Medications Medication Instructions Recorded Confirmed aspirin 81 mg tablet,delayed 81 mg PO DAILY HEART HEALTH 05/24/19 01/22/24 release atorvastatin 80 mg tablet 80 mg PO DAILY Cholesterol 05/24/19 01/22/24 metoprolol tartrate 25 mg tablet 25 mg PO BID Hypertension 05/24/19 01/22/24 clopidogrel 75 mg tablet (Plavix) 75 mg PO DAILY Heart disease 06/13/19 01/22/24 ezetimibe 10 mg tablet (Zetia) 10 mg PO DAILY 01/22/24 01/22/24 lisinopril 20 mg tablet 20 mg PO DAILY 01/22/24 01/22/24 metformin 500 mg tablet 500 mg PO DAILY 01/22/24 01/22/24 omeprazole 40 mg capsule,delayed 40 mg PO DAILY 01/22/24 01/22/24 release Previous Rx's Medication Instructions Recorded methocarbamol 750 mg tablet 750 mg PO TID PRN muscle spasm #12 01/22/24 tabs Allergies Allergy/AdvReac Type Severity Reaction Status Date / Time Penicillins [PENICILLINS] Allergy Unknown Verified 01/22/24 08:30 Worker's Comp Is this a Worker's Comp case?: No [facility] Disclaimer: The information contained in this section may have been updated after the patient was seen, as this information can be updated by other users. Medical History (Updated 01/22/24 @ 09:30 by Radha Garcia APRN) HTN (hypertension) Social History Smoking Status: Current every day smoker tobacco type: cigarettes packs per day: 1 alcohol intake: never substance use type: denies use current occupational status: employed Travel in the last 8 weeks: None housing: house caffeine: No ROS Obtained: Yes All systems reviewed & no additional complaints except as documented and Yes Systems reviewed as appropriate & no additional complaints except as documented Constitutional Constitutional: Reports system reviewed and no additional complaints, except as documented, Reports as per HPI, Denies body ache, Denies chills and Denies fever(s) ENT Ears, Nose, Mouth, and Throat: Reports system reviewed and no additional complaints, except as documented and Reports as per HPI Cardiovascular Cardiovascular: Reports system reviewed and no additional complaints, except as documented and Reports as per HPI Respiratory Respiratory: Reports system reviewed and no additional complaints, except as documented, Reports as per HPI and Reports cough Gastrointestinal Gastrointestingal: Reports system reviewed and no additional complaints, except as documented and as per HPI Genitourinary Male Genitourinary: Reports system reviewed and no additional complaints, except as documented and Reports as per HPI Musculoskeletal Musculoskeletal: Reports system reviewed and no additional complaints, except as documented, Reports as per HPI and Reports other (Pain in mid back that wraps around sides) Physical Exam General General appearance: alert and in no apparent distress ENT ENT exam: Present mucous membranes moist Respiratory Respiratory exam: Present normal lung sounds bilaterally; Absent respiratory distress or wheezes Cardiovascular Cardiovascular exam: Present regular rate, normal rhythm and normal heart sounds Abdominal Exam Abdominal exam: Present soft and normal bowel sounds; Absent distention or tenderness Back Exam Back exam: Present tenderness Back 1 view image: 1. reports pain that at times feels like it moves around to his sides that is worse with cough, denies known injury Denies loss of control of bowel or bladder Neurological Exam Neurological exam: Present alert, oriented X3 and normal gait Medical Decision Making Wilbur Inquiry Pt receiving controlled substance: No [place] was queried for this patient: No Vital Signs: 01/22/24 08:20 Temperature 98.1 F Temperature Source Oral Pulse Rate [Right Radial] 91 H Respiratory Rate 18 Blood Pressure [Right Arm] 152/91 H Blood Pressure Mean [Right Arm] 111 Blood Pressure Source [Right Arm] Automatic Cuff Blood Pressure Position [Right Arm] Sitting 02 Sat by Pulse Oximetry 96 Oxygen Delivery Method Room Air Orders (Tests/Meds): ORDERS Category Date Time Status Chest XR 2 view (NOT portable) [XR chest 2V] Stat Exams 01/22/24 08:31 Ordered Radiology Data #1: Image(s): Chest Image Reviewed: Yes I have reviewed radiologist's interpretation no acute cardiopulmonary process Medical Decision Narrative: Discussed with patient about transfer to the ED for further evaluation and work up and he declined will try muscle relaxers and follow up with his family doctor if no improvement
[2024-01-22 08:57] LABS: Apearance,Urine Clear (Clear); Bilirubin,Urine Negative (Negative); Blood, Urine Negative (Negative); Color,Urine Yellow (Yellow); Glucose,Urine (UA) Negative (Negative); Ketones,Urine Negative (Negative); Protein,Urine Negative (Negative); Specific Gravity, Urine 1.025 (1.005-1.030); UTC Leukocyte Esterase,Urine Negative (Negative); UTC Nitrate,Urine Negative (Negative); Urobilinogen,Urine 0.2 EU/dl (0.2)
[2024-01-22 09:48] VITALS: BP 152/91; PULSE 91; RESP 18; TEMP 36.7; O2SAT 96
== END 2024-01-22 09:48 | disposition home or self-care (01) ==
PROVIDERS: Emergency Provider Nurse Practitioner; PCP Internal Medicine Adolescent Medicine
DX: M54.6 Pain in thoracic spine (principal); M62.830 Muscle spasm of back; F17.210 Nicotine dependence, cigarettes, uncomplicated; I10 Essential (primary) hypertension
CPT/HCPCS: 71046; 81003; 99204; 99212; G0463